=== PATIENT | male | born 1990 | race Caucasian/White ===

== ENCOUNTER 2022-02-12 18:21 | Emergency (ER) | payer OTHER, SELFPAY ==
--- NOTE | ~2022-02-12 | XR_ITS ---
XR shoulder LT min 2V 02/12/2022 19:45 Indication: Left shoulder pain Procedure: 2 views left shoulder Comparison: 02/13/2012 Findings: There is anatomic alignment of the glenohumeral joint post reduction. No fracture, subluxat ion or dislocation. No significant soft tissue abnormality. Impression: 1: Anatomic alignment of left shoulder post reduction. No underlying fracture. Reviewed, dictated and finalized at location A. Impression: 1: Anatomic alignment of left shoulder post reduction. No underlying fracture.
--- NOTE | ~2022-02-12 | XR_ITS ---
XR shoulder LT min 2V 02/12/2022 19:45 Indication: Left shoulder pain Procedure: 2 views left shoulder Comparison: No prior studies for comparison. Findings: There is a left shoulder anterior dislocation. No underlying fracture identified. No signif icant soft tissue abnormality. Impression: 1: Left anterior shoulder dislocation. Reviewed, dictated and finalized at location A. Impression: 1: Left anterior shoulder dislocation.
[2022-02-12 18:36] VITALS: BP 172/104; PULSE 101; RESP 16; TEMP 36.8; O2SAT 96
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
[2022-02-12 20:49] VITALS: BP 150/92; PULSE 89; RESP 18; O2SAT 98
== END 2022-02-12 20:53 | disposition home or self-care (01) ==
PROVIDERS: Emergency Provider Emergency Medicine
DX: S43.005A Unspecified dislocation of left shoulder joint, initial encounter (principal); W22.8XXA Striking against or struck by other objects, initial encounter
CPT/HCPCS: 23650; 73030; 99285